=== PATIENT | male | born 1960 | race Caucasian/White ===

== ENCOUNTER → 2016-11-16 | Outpatient (CLI) | payer OTHER ==
--- NOTE | 2016-11-18 16:13 | CPEEG ---
[f rep st] ELECTROENCEPHALOGRAM DATES OF STUDY: This study was performed from 11/16/2016 to 11/17/2016. INTERPRETATION: This 24-hour ambulatory EEG recording is essentially normal. There were no definite epileptogenic abnormalities present during the awake or sleep recordings. During the ambulatory EEG monitoring session, the patient had typical events of pruritus without EEG correlate. This would be consistent with nonepileptic symptoms. REPORT: This 24-hour ambulatory EEG recording was performed from November 16 to November 17, 2016. The background activity contained 9-10 Hz alpha to the posterior head regions. The background activity was normal and symmetric. The patient became drowsy and fell into sustained sleep during the study. There was no abnormal activation at rest. During drowsiness and sleep, there were rare sharply contoured wave forms of uncertain clinical significance over the left temporal head region. There was no definite abnormal activation during drowsiness, sleep, or during times of arousal. During the ambulatory recording, the patient had typical events of itching on November 16, 2016 at 2355 as reported on his patient diary, and again at 12:17 a.m., and again at 2:30 a.m. later that evening. The next morning, on November 17, 2016 at 11:10 a.m., the patient had a cluster of itching over the left side of his body. None of these events had an abnormal EEG correlate. /[id number]/MODL MTDD
== END ==
LOC: FCPNEURO 14:35
PROVIDERS: ATTEND Psychiatry & Neurology Neurology
DX: R29.818 Other symptoms and signs involving the nervous system (principal)

== ENCOUNTER → 2017-08-22 | Outpatient (CLI) | payer OTHER | LOC: CIMAGING 07:10 | PROVIDERS: ATTEND Internal Medicine Gastroenterology | DX: R10.11 Right upper quadrant pain (principal); R14.0 Abdominal distension (gaseous); R11.0 Nausea | CPT/HCPCS: 76705-PO ==